=== PATIENT | female | born 2000 | race African-American/Black ===

== ENCOUNTER 2022-01-30 03:19 | Emergency (ER) | payer MEDICAID, OTHER ==
[~2022-01-30] VITALS: Ht 162.6 cm; Wt 68.0 kg
[2022-01-30 03:22] VITALS: BP 116/80
== END 2022-01-30 03:34 | disposition left against medical advice (07) ==
LOC: ER 03:19
DX: Z53.21 Procedure and treatment not carried out due to patient leaving prior to being seen by health care provider (principal)